=== PATIENT | male | born 1975 | race African-American/Black ===

== ENCOUNTER 2021-06-05 15:37 | Emergency (ER) | payer OTHER ==
[~2021-06-05] VITALS: Ht 170.2 cm; Wt 83.9 kg
--- NOTE | ~2021-06-05 | EMS ---
[facility] [address] [place] [address] EMS Patient Care Report Name: HARIKA MCCALL Room #: DEP VANESSA Lucas#: [id number] Admission: 06/05/21 Attend Phys: Discharge: 06/05/21 Date of : 75 Report #: [id number] THIS REPORT FOR: //name// Report Transmitted: 06/08/2021 12:57 EMS Care Summary [place], [place]/[facility] Incident [id number] @ 06/05/2021 15:00 Incident Location [facility] [address] [place] [address] Patient HARIKA MCCALL Male, 46 Years 1975 Patient Address [address] [place] [address] Patient History Diabetes, Patient Allergies No known allergies, Patient Medications Metformin, Chief Complaint altered mental status Disposition Transported No Lights/[place] Dispatch Reason Overdose/Poisoning/Ingestion Transported To [facility] Narrative FIND PT STANDING OUTSIDE AT [employer] TALKING TO POLICE. PT WAS ACTING ODD IN CAR WASH AND BY STANDERS CALLED. POLICE BELIEVE THE PT IS UNDER THE INFLUENCE OF PCP. PT IS AWAKE BUT CONFUSED. PT IS ALMOST UNSTEADY ON FEET BUT IS ABLE TO [facility] [address] [place] [address] EMS Patient Care Report Name: HARIKA MCCALL Room #: DEP VANESSA Lucas#: [id number] Admission: 06/05/21 Attend Phys: Discharge: 06/05/21 Date of : 75 Report #: [id number] GET INTO UNIT AND SIT ON BENCH AND TAKE VS. PT BG IS ELEVATED. PT IS COOPERATIVE AND DENIES ANY DRUG USE. PT MAKES NO OTHER COMPLAINTS IN ROUTE. PT CARE IS TOT RN IN TRIAGE AREA. Initial Vitals @15:19P: 105,BP: 183/103,CO: 7,SpO2: 97, @15:28P: 105,BP: 169/92,CO: 6,SpO2: 98, @15:15P: 109,R: 16,BP: 163/80,Pain: 0/10,GCS: 14,Glucose: 326,CO: 8,SpO2: 99,Revised Trauma: 12, Assessments @15:16MENTAL:Confused,SKIN:HEENT:LUNG SOUNDS:ABDOMEN:PELVIS//GI:EXTREMITIES:PULSE:NEURO: Impression Altered Mental Status Procedures @15:15 ALS Assessment Response: UnchangedSucceeded Timeline 14:58,Call Received 14:58,Dispatch Notified 15:00,Dispatched 15:01,En Route 15:12,On Scene 15:14,At Patient 15:15,ALS Assessment,Response: UnchangedSucceeded, 15:15,BP: 163/80 M,PULSE: 109,RR: 16 R,SPO2: 99 Ox,ETCO2: ,B,PAIN: 0,GCS: 14, 15:19,BP: 183/103 M,PULSE: 105,RR: R,SPO2: 97 Ox,ETCO2: ,BG: ,PAIN: ,GCS: , 15:23,Depart Scene 15:28,BP: 169/92 M,PULSE: 105,RR: R,SPO2: 98 Ox,ETCO2: ,BG: ,PAIN: ,GCS: , 15:35,At Destination 15:50,Call Closed Disclaimer v1.1 Copyright 2020 [employer] This EMS Care Summary contains data elements from the applicable legal record (which may be displayed differently). It is designed to provide pertinent information for the following purposes: continuity of care, clinical quality, and state data reporting. The complete legal record is available to ED staff and administrators of the receiving hospital in [employer]'s Patient Tracker. All data is provided "as is."
--- NOTE | ~2021-06-05 | EMS ---
[facility] [address] [place] [address] EMS Patient Care Report Name: HARIKA MCCALL Room #: DEP VANESSA Lucas#: [id number] Admission: 06/05/21 Attend Phys: Discharge: 06/05/21 Date of : 75 Report #: [id number] THIS REPORT FOR: //name// Report Transmitted: 06/06/2021 07:53 EMS Care Summary [place], [place]/[facility] Incident [id number] @ 06/05/2021 15:[address] [facility] [address] [place] [address] Patient HARIKA MCCALL Male, 46 Years 1975 Patient Address [address] [place] [address] Patient History Diabetes, Patient Allergies No known allergies, Patient Medications Metformin, Chief Complaint altered mental status Disposition Transported No Lights/[place] Dispatch Reason Overdose/Poisoning/Ingestion Transported To [facility] Narrative FIND PT STANDING OUTSIDE AT [employer] TALKING TO POLICE. PT WAS ACTING ODD IN [employer] WASH AND BY STANDERS CALLED. POLICE BELIEVE THE PT IS UNDER THE INFLUENCE OF PCP. PT IS AWAKE BUT CONFUSED. PT IS ALMOST UNSTEADY ON FEET BUT IS ABLE TO [facility] [address] [place] [address] EMS Patient Care Report Name: HARIKA MCCALL Room #: DEP VANESSA Lucas#: [id number] Admission: 06/05/21 Attend Phys: Discharge: 06/05/21 Date of : 75 Report #: [id number] GET INTO UNIT AND SIT ON BENCH AND TAKE VS. PT BG IS ELEVATED. PT IS COOPERATIVE AND DENIES ANY DRUG USE. PT MAKES NO OTHER COMPLAINTS IN ROUTE. PT CARE IS TOT RN IN TRIAGE AREA. Initial Vitals @15:19P: 105,BP: 183/103,CO: 7,SpO2: 97, @15:28P: 105,BP: 169/92,CO: 6,SpO2: 98, @15:15P: 109,R: 16,BP: 163/80,Pain: 0/10,GCS: 14,Glucose: 326,CO: 8,SpO2: 99,Revised Trauma: 12, Assessments @15:16MENTAL:Confused,SKIN:HEENT:LUNG SOUNDS:ABDOMEN:PELVIS//GI:EXTREMITIES:PULSE:NEURO: Impression Altered Mental Status Procedures @15:15 ALS Assessment Response: UnchangedSucceeded Timeline 14:58,Call Received 14:58,Dispatch Notified 15:00,Dispatched 15:01,En Route 15:12,On Scene 15:14,At Patient 15:15,ALS Assessment,Response: UnchangedSucceeded, 15:15,BP: 163/80 M,PULSE: 109,RR: 16 R,SPO2: 99 Ox,ETCO2: ,B,PAIN: 0,GCS: 14, 15:19,BP: 183/103 M,PULSE: 105,RR: R,SPO2: 97 Ox,ETCO2: ,BG: ,PAIN: ,GCS: , 15:23,Depart Scene 15:28,BP: 169/92 M,PULSE: 105,RR: R,SPO2: 98 Ox,ETCO2: ,BG: ,PAIN: ,GCS: , 15:35,At Destination 15:50,Call Closed Disclaimer v1.1 Copyright 2020 [employer] This EMS Care Summary contains data elements from the applicable legal record (which may be displayed differently). It is designed to provide pertinent information for the following purposes: continuity of care, clinical quality, and state data reporting. The complete legal record is available to ED staff and administrators of the receiving hospital in [employer]'s Patient Tracker. All data is provided "as is."
[2021-06-05] MEDS ORDERED: METFORMIN HCL500 M3 PO (16:05)
[2021-06-05 16:40] LABS: HEMATOCRIT 40.9 % (42.0-52.0); HEMOGLOBIN 13.1 gm/dL (14.0-18.0); MCH 25.1 pg (26.0-34.0); MCHC 32.1 g/dL (28.0-37.0); MCV 78.2 fL (80.0-100.0); RBC 5.23 mil/uL (4.50-6.00); RDW 16.1 % (10.5-14.5); WBC 9.2 thou/uL (4.0-11.0)
--- NOTE | 2021-06-05 16:47 | EKG ---
[address] [place] [address] ELECTROCARDIOGRAM REPORT Name: HARIKA MCCALL Room #: REG VANESSA Lucas#: [id number] Admission: 06/05/21 Attend Phys: Discharge: Date of : 75 Report #: [id number] [facility] ED Test Date: 2021-06-05 Test Time: 16:13:22 Pat Name: HARIKA MCCALL Department: Room: Gender: M Senior Environmental Scientist: jordon : 1975 Requested By: Troy Wilkinson Order Number: [id number] MD: Domingo Harvey Measurements Intervals [place] Rate: 79 P: 60 HI: 148 QRS: 80 QRSD: 79 T: 41 QT: 390 QTc: 448 Interpretive Statements Sinus rhythm Consider left ventricular hypertrophy No previous ECG available for comparison Electronically Signed On 06-05-2021 16:47:04 ELECTROCARDIOGRAPH OPERATOR by Domingo Harvey [email or web address] <ELECTRONICALLY SIGNED> By: Domingo Harvey MD, [facility] 06/05/21 1647 1613 1613 Domingo Harvey MD, FACC /EPI
[2021-06-05 17:01] LABS: CALCIUM 9.4 mg/dL (8.5-10.1); CREATININE 1.4 mg/dL (0.7-1.3); POTASSIUM 4.3 mmol/L (3.5-5.1)
[2021-06-05 17:11] LABS: ALBUMIN 3.9 g/dL (3.4-5.0); PHOSPHORUS 4.3 mg/dL (2.6-4.7); SALICYLATE 3.6 mg/dL (2.8-20.0); TOTAL BILIRUBIN 0.7 mg/dL (0.2-1.0); TOTAL PROTEIN 6.7 g/dL (6.4-8.2)
[2021-06-05 17:30] LABS: AMP/METHAMP Negative (Negative); BARBITURATES Negative (Negative); BENZODIAZEPINES Negative (Negative); COCAINE Negative (Negative); METHADONE Negative (Negative); OPIATES Negative (Negative); PCP POSITIVE (Negative)
[2021-06-05 17:43] VITALS: BP 155/92
== END 2021-06-05 17:46 | disposition home or self-care (01) ==
LOC: ER 15:37
PROVIDERS: Emergency Medicine
DX: N17.9 Acute kidney failure, unspecified (principal); F19.129 Other psychoactive substance abuse with intoxication, unspecified; E11.65 Type 2 diabetes mellitus with hyperglycemia; E83.42 Hypomagnesemia; F12.90 Cannabis use, unspecified, uncomplicated